=== PATIENT | female | born 1955 | race Caucasian/White ===

== ENCOUNTER → 2018-01-16 | Outpatient (CLI) | payer BC ==
[2018-01-16 08:56] VITALS: PULSE 90; TEMP 96.8; BMI 39.4
[2018-01-16 09:01] VITALS: BP 108/72
--- NOTE | 2018-01-16 09:44 | P.HPOB ---
History of Present Illness H&P Date: 01/16/18 Chief Complaint: Postmenopausal vaginal spotting which started around 2017. This is a 62-year-old G2 PII with an LNMP of 2006. The patient did not have any vaginal bleeding from the time of her LNMP until about 01/02/2018 when she started having vaginal spotting. The spotting lasted for about 10 days and has stopped for the last 5 days. She is not on any form of HRT nor does she take any supplements for menopausal symptoms. She currently is not taking any medication nor she taking [id number] supplements. She is not sexually active. She does not believe the small amount of blood came from the rectum or bladder. She is otherwise without complaints. Her last pelvic exam was approximately 9 years ago. Review of Systems She believes she has lost about 10 pounds which has been intentional. She denies respiratory, cardiac, or G.I. problems. Past Medical History Additional Past Medical History / Comment(s): Chronic back problems. PAST ACCOUNTING INTERN HISTORY: She has no history of STDs. 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 - Past Family History Mother Family Medical History: Cancer (Breast) Additional Family Medical History / Comment(s): Maternal great aunt and maternal 1st cousin had breast cancer. Father Family Medical History: Hypertension Additional Family Medical History / Comment(s): Paternal grandmother had colon cancer. Medications and Allergies Home Medications Medication Instructions Recorded Confirmed Type No Known Home Medications 01/16/18 01/16/18 History Allergies Allergy/AdvReac Type Severity Reaction Status Date / Time clindamycin Allergy Severe hives Unverified 01/16/18 08:35 acetaminophen [From Vicodin] AdvReac Severe Itching Unverified 01/16/18 08:35 hydrocodone [From Vicodin] AdvReac Severe Itching Unverified 01/16/18 08:35 Exam Vital Signs Temp Pulse BP 01/16/18 09:01 96.8 F L 90 108/72 01/16/18 08:54 96.8 F L 90 Intake and Output 01/15/18 01/16/18 01/16/18 22:59 06:59 14:59 Other: Weight 91.626 kg Height 5'0" BMI 39.5 This is a well-developed well-nourished heavyset white female who is alert and oriented times 3 in no acute distress. HEENT: Within normal limits. NECK: Supple without mass or thyromegaly. CHEST AND LUNGS: Clear to auscultation. HEART: Regular rate and rhythm. BREASTS: Are without mass or discharge. AXILLARY EXAM: Negative for adenopathy. BACK: Negative for CVA tenderness. ABDOMEN: Soft, obese, nontender, without palpable masses. PELVIC EXAM: Normal external genitalia with mild to moderate atrophy. Cervix and vagina appear normal with mild to moderate atrophy. The cervix appears nulliparous and is somewhat stenotic secondary to atrophy. There is no unusual discharge. There is no evidence of prolapse. The uterus is midposition, nongravid size and nontender. There are no palpable adnexal masses or tenderness. RECTAL EXAM: rectovaginal exam is negative for mass or tenderness and is negative for occult blood. EXTREMITIES: Nontender. IMPRESSION: 1. 62-year-old female with light postmenopausal bleeding earlier this month. There is no current bleeding at this time. 2. Moderate genital atrophy with cervical stenosis. PLAN: 1. Pap smear was performed. 2. Self breast awareness was discussed with the patient. 3. The patient states she had a normal mammogram in July 2017. 4. Pelvic ultrasound will be performed today. If the endometrial thickness is 4 mm or less, consider conservative management. We will plan on referring the patient for endometrial sampling if endometrial thickness is greater than 4 mm or if she has recurrent bleeding. Total time spent with patient 35 minutes
--- NOTE | 2018-01-16 11:25 | US ---
EXAMINATION TYPE: US pelvic complete DATE OF EXAM: 01/16/2018 COMPARISON: NONE CLINICAL HISTORY: PMB N95.0. TECHNIQUE: Transabdominal sonographic images of the pelvis were acquired. Date of LMP: 2006 EXAM MEASUREMENTS: Uterus: 7.7 x 3.2 x 4.1 cm Endometrial Stripe: 0.3 cm Right Ovary: 2.3 x 0.9 x 1.2 cm Left Ovary: 2.8 x 2.4 x 2.2 cm 1. Uterus: Anteverted 2. Endometrium: wnl 3. Right Ovary: wnl 4. Left Ovary: wnl 5. Bilateral Adnexa: wnl 6. Posterior cul-de-sac: wnl Urinary bladder is absent. The posterior wall is normal. IMPRESSION: 1. Pelvic ultrasound is visualized appears within normal limits.
--- NOTE | 2018-01-16 13:13 | P.PN ---
Progress Note - Text Progress Note Date: 01/16/18 OUTPATIENT FOLLOW-UP NOTE TEST(S)/RESULTS: pelvic ultrasound done today is negative. Endometrial thickness was 3 mm. Ovaries appeared within normal limits. METHOD OF NOTIFICATION: the patient was notified by phone. PATIENT COMMENTS: the patient understands the result DIAGNOSIS: negative pelvic ultrasound with normal endometrial thickness with episode of light postmenopausal vaginal bleeding. DISCUSSION: we've discussed how the thin endometrial thickness is very reassuring. She understands further testing may be required if she has recurrent bleeding. PLAN: await Pap smear results. She will call if she has recurrent vaginal bleeding.
== END | disposition home or self-care (01) ==
LOC: WWCWWP 08:12 → EDSTATUS 08:30 → WWCWWP 08:44
PROVIDERS: ATTEND Obstetrics & Gynecology
DX: N95.0 Postmenopausal bleeding (principal)
CPT/HCPCS: 76856